=== PATIENT | female | born 1975 | race Hispanic/Latino ===

== ENCOUNTER → 2017-12-25 | Day surgery (SDC) | payer OTHER ==
--- NOTE | 2017-12-25 11:51 | RAD REPORT ---
EXAM DESCRIPTION: Ultrasound-guided vacuum assisted left breast core biopsy CLINICAL HISTORY: Breast mass, palpable, 11 o'clock region left breast. COMPARISON: Recent breast imaging studies. FINDINGS: Informed consent was obtained and time-out was performed. Particular risk of implant ruptu re during the biopsy was explained in detail to the patient. The patient's left breast was prepped and draped in the usual sterile fashion. 1% lidocaine was used for local anesthetic purposes. Utilizing aseptic technique and ultrasound guidance, vacuum assisted core biopsy device was used to o btain 2 core specimen through the mass of interest, approximately 11-12 o'clock posteriorly. A post b iopsy clip was then placed. All collected material was sent for cytology. Patient tolerated procedure well. IMPRESSION: Successful ultrasound guided vacuum assisted left breast mass biopsy.
== END ==
LOC: DS 10:37
PROVIDERS: ATTEND Surgery Plastic and Reconstructive Surgery
PROC: 0HBU3ZX Excision of Left Breast, Percutaneous Approach, Diagnostic (ICD-10-PCS; principal; 2017-12-25)
DX: C50.912 Malignant neoplasm of unspecified site of left female breast (principal); Z17.0 Estrogen receptor positive status [ER+]
CPT/HCPCS: 19083; 88305

== ENCOUNTER 2018-01-10 07:38 | Day surgery (SDC) | payer OTHER ==
--- NOTE | 2018-01-09 14:29 | RAD REPORT ---
EXAM DESCRIPTION: RADOP - Outpt Chest Pa/Lat (2 Views) - 01/09/2018 2:23 pm CLINICAL HISTORY: Preop chest COMPARISON: None. TECHNIQUE: PA and lateral views of the chest were obtained. FINDINGS: The lungs are clear. Heart size is normal and central vasculature is within normal limits . No pleural effusion or pneumothorax seen. No acute bony finding noted. No acute aortic finding. Br east implants are in place. No free air under the diaphragm. Trachea is midline. IMPRESSION: No acute cardiopulmonary process.
[2018-01-09 14:56] LABS: Absolute Lymphocytes (CBC) 1.9 K/uL (0.7-4.9); Absolute Monocytes 0.4 K/uL (0.1-1.3); Absolute Neutrophil 3.8 K/uL (1.8-8.0); Basophils % 0.8 % (0-1.3); Eosinophils % 1.5 % (0-4.4); MCH 30.3 pg (27.0-35.0); MCV 92.3 fL (80-100); MPV 9.7 fL (7.6-11.3); Monocytes % 6.6 % (3.3-12.3); RBC Red Blood Cell Count 4.34 M/uL (3.86-4.86)
[2018-01-09 15:13] LABS: BUN Blood Urea Nitrogen 8 mg/dL (6-20); Bicarbonate 29 mEq/L (21-31); Glucose Level 107 mg/dL (65-120); Potassium 3.8 mEq/L (3.6-5.0); Sodium Level 138 mEq/L (135-145)
--- NOTE | 2018-01-10 07:37 | EKG ---
Test Date: 2018-01-09 Test Time: 14:14:31 Printer Floor Covering Assistant: JARRETT MEASUREMENT RESULTS: Intervals: Rate: 68 [place]: 148 QRSD: 88 QT: 382 QTc: 406 [place]: P: 47 KS: 148 QRS: 43 T: 36 INTERPRETIVE STATEMENTS: Normal sinus rhythm Normal ECG No previous ECG available for comparison Electronically Signed On 01-10-18 07:35:02 CDT by Otf Rivero
[2018-01-10] MEDS ORDERED: Ringers Lactate 1,000 ML IV ONE ×3 (08:08→14:05)
[2018-01-10] MEDS ORDERED: CEFAZOLIN/SWI 1gm 1 GM/10 ML SYR ONE (08:50)
[2018-01-10] MEDS ORDERED: METHYLENE BLUE 0.5% 10 ML AMP ONE (10:19)
[2018-01-10] MEDS ORDERED: MIDAZOLAM HCL 2 MG/2 ML INJ ONE (10:20)
[2018-01-10] MEDS ORDERED: LIDOCAINE 2% MPF 5 ML VIAL ONE (10:20)
[2018-01-10] MEDS ORDERED: PROPOFOL 200 MG/20 ML VIAL IV ONE (10:20)
[2018-01-10] MEDS ORDERED: ONDANSETRON 4 MG/2 ML VIAL ONE ×2 (10:21→11:08)
[2018-01-10] MEDS ORDERED: FENTANYL CITR 250 MCG/5 ML ONE (10:21)
[2018-01-10] MEDS ORDERED: ROCURONIUM 50 MG/5 ML VIAL IV ONE (10:22)
[2018-01-10] MEDS ORDERED: SCOPOLAMINE HYDROBROMIDE PATCH TD ONE (10:44)
[2018-01-10] MEDS ORDERED: GLYCOPYRROLATE 0.2 MG/ML SYR ONE (11:08)
[2018-01-10] MEDS ORDERED: NEOSTIGMINE 1 MG/ML -5 ML SYRINGE ONE (11:09)
[2018-01-10] MEDS ORDERED: MORPHINE 10 MG/ML VIAL ONE (11:22)
[2018-01-10] MEDS ORDERED: TRAMADOL 37.5mg/APAP 325mg PER TAB PO PRN (14:18)
[2018-01-10] MEDS ORDERED: SODIUM CHLORIDE 0.9% 10ML INJ IV PRN (14:18)
--- NOTE | 2018-01-10 14:29 | P.BOP ---
Preoperative diagnosis: left breast invasive ductal carcinoma Postoperative diagnosis: same Primary procedure: LEft modified radical mastectomy, Right mastectomy Secondary procedure: left sentinel lymphnode biopsy Warehouse Attendant: EVAN HERNANDEZ Estimated blood loss: 150cc Specimen: sentinel LN, Findings: sentinel ln positive for cancer Anesthesia: General Complications: None Drain(s): KYLE drain Transferred to: Recovery Room Condition: Good
[2018-01-10] MEDS: MORPHINE 4 MG/ML SYR ONE ×2 (15:10→15:17)
[2018-01-10] MEDS ORDERED: PROMETHAZINE 25 MG/ML VIAL ONE (15:29)
[2018-01-10] MEDS: NA CHLORIDE 0.9% 1,000 ML IV SCH (16:17)
[2018-01-10 17:30] VITALS: BMI 26.5
[2018-01-10] MEDS ORDERED: MORPHINE 2 MG/ML SYR IV PRN (19:04)
[2018-01-10] MEDS ORDERED: MORPHINE 4 MG/ML SYR IV PRN (19:05)
[2018-01-10] MEDS: HYDROCODONE/APAP 7.5/325 MG TAB PO PRN ×2 (19:27→23:12)
[2018-01-10] MEDS: CIPROFLOXACIN 400mg IV 400 MG/200 ML BAG IV SCH (21:36)
[2018-01-11] MEDS: NA CHLORIDE 0.9% 1,000 ML IV SCH ×2 (03:48→11:00)
[2018-01-11] MEDS: HYDROCODONE/APAP 7.5/325 MG TAB PO PRN ×5 (03:49→20:05)
[2018-01-11 06:11] LABS: Absolute Lymphocytes (CBC) 1.7 K/uL (0.7-4.9); Absolute Monocytes 0.8 K/uL (0.1-1.3); Absolute Neutrophil 5.2 K/uL (1.8-8.0); Basophils % 0.5 % (0-1.3); Hematocrit 29.6 % (36.0-45.0); Lymphocytes % 21.4 % (15.3-44.8); MCV 91.7 fL (80-100); MPV 9.6 fL (7.6-11.3); Monocytes % 9.8 % (3.3-12.3); RBC Red Blood Cell Count 3.22 M/uL (3.86-4.86)
[2018-01-11 06:24] LABS: BUN Blood Urea Nitrogen 7 mg/dL (6-20); Bicarbonate 29 mEq/L (21-31); Glucose Level 107 mg/dL (65-120); Potassium 4.6 mEq/L (3.6-5.0); Sodium Level 136 mEq/L (135-145)
[2018-01-11] MEDS: CIPROFLOXACIN 400mg IV 400 MG/200 ML BAG IV SCH ×2 (08:47→20:06)
[2018-01-11] MEDS ORDERED: PANTOPRAZOLE 40 MG INJ IVP SCH (09:00)
[2018-01-11 09:29] VITALS: O2SAT 98
[2018-01-11] MEDS ORDERED: MORPHINE 4 MG/ML SYR IV PRN (10:37)
[2018-01-11 16:54] VITALS: TEMP 98.5
--- NOTE | 2018-01-11 19:58 | P.DS ---
Discharge Date: 01/11/18 Disposition: ROUTINE DISCHARGE Discharge Condition: GOOD Vital Signs/Physical Exam: Temp Pulse Resp BP Pulse Ox 98.5 F 58 20 157/75 H 100 01/11/18 16:00 01/11/18 16:00 01/11/18 16:00 01/11/18 16:00 01/11/18 16:00 General: Alert, In no apparent distress, Oriented x3, Cooperative HEENT: PERRLA, EOMI Neck: Supple Respiratory: Normal air movement Cardiovascular: No edema, Normal pulses Gastrointestinal: Soft and benign, No masses, No rebound Musculoskeletal: No swelling, No contractures, No erythema, No tenderness, No warmth Integumentary: No erythema, No warmth, No cyanosis Laboratory Data at Discharge: WBC 7.9 K/uL (4.3-10.9) D 01/11/18 05:21 Hgb 10.0 g/dL (12.0-15.0) L D 01/11/18 05:21 Hct 29.6 % (36.0-45.0) L D 01/11/18 05:21 Plt Count 169 K/uL (152-406) D 01/11/18 05:21 Sodium 136 mEq/L (135-145) 01/11/18 05:21 Potassium 4.6 mEq/L (3.6-5.0) 01/11/18 05:21 BUN 7 mg/dL (6-20) 01/11/18 05:21 Creatinine 0.57 mg/dL (0.44-1.00) 01/11/18 05:21 Glucose 107 mg/dL (65-120) 01/11/18 05:21 Home Medications: Cranberry Fruit Extract [Cranberry] 500 mg PO DAILY 01/09/18 Fexofenadine HCl [Fannie Allergy] 180 mg PO DAILY 01/09/18 L.acidoph,Paracasei, B.lactis [Probiotic] 1 each PO DAILY 01/09/18 Triamcinolone Acetonide [Nasacort Aq] 16.5 gm NS DAILY 01/09/18 Turmeric Root Extract [Turmeric] 1,000 mg PO DAILY 01/09/18 Ciprofloxacin HCl [Cipro 500 MG Tablet] 500 mg PO BID #12 tab 01/11/18 Hydrocodone/Acetaminophen [Vicodin 5-325 mg Tablet] 1 each PO Q4H #30 tablet 02/23 New Medications: Ciprofloxacin HCl [Cipro 500 MG Tablet] 500 mg PO BID #12 tab Hydrocodone/Acetaminophen [Vicodin 5-325 mg Tablet] 1 each PO Q4H #30 tablet Patient Discharge Instructions: keep area intact. Record KYLE output q24h Diet: AHA Activity: No lifting more than 10 lbs Followup: Devin Alfonso MD [ACTIVE - CAN ADMIT] - 01/15/18
[2018-01-11 21:30] VITALS: BP 158/77
--- NOTE | 2018-01-16 01:01 | OP ---
Date of Procedure: 01/10/2018 Surgeon: Devin Alfonso MD Inside Sales Agent: RUTHY Beltre. Preoperative Diagnosis: Left breast invasive ductal carcinoma with lymphadenopathy. Postoperative Diagnosis: Left breast invasive ductal carcinoma with lymphadenopathy. Procedures: 1.Left modified radical mastectomy, right. 2.Right simple mastectomy. 3.Left sentinel lymph node biopsy. Estimated Blood Loss: About 150 cc. Specimen: [place] lymph node in left breast and right breast and axillary dissection. Findings: [place] lymph node positive for cancer. Anesthesia: General plus local. Indications: This is the case of a female, a 42-year-old patient, comes to us with a left breast inv asive ductal carcinoma. We had extensive discussion about the different options that we might have. After discussing with her breast conservative treatment versus a breast removal, we even suggested h er to consult her plastic surgeons for any other suggestions. The patient comes back with a decision of left mastectomy and sentinel lymph node biopsy with possible axillary dissection, and also, she w ants the right breast to be removed too. So, consent was obtained for those procedures including als o removal of the implant since that will be exposed. The removal of implant will be right and left a nd the patient did agree. The patient understands the benefits, alternatives, and risks which includ e but are not limited to infection, bleeding, damage to adjacent structures, anesthesia complication, recurrence, lymphedema, flap failure, DVTs, VA, even . She also understands this may not relie ve any symptoms. She might need more than one surgical intervention. She understands the importance of followup with her oncologist. There is a good chance that she may require a chemotherapy due to the size of the tumor and the findings. She understands that. She signed a consent. Description Of Procedure: The patient was brought to the operating room and placed in supine positio n. Anesthesia was done without complication. This morning, she went to the Radiology Department whe n she injected technetium colloid and a lymphoscintigram was done. From there, the patient went to [facility] operating room. After that, the patient was taken to the operating room and placed in the supine position. Anesthesia was done without complication. A time-out was called. Bilateral breast and ne ck were prepped and draped in a sterile fashion. Blue dye was injected in the 4 quadrants in the per iareolar region. We started with the left side first with the area with a proven cancer. Each proce dure was done individually avoiding any cross contamination between instruments and glove and gowns. A hand-held gamma probe was used to identify the location of the hottest spot in the left axillary r egion. Prior to incision, the count was about 604. The in vivo count was 2309 and the ex vivo count is 3865, background 0, blue node yes, and no other count was obtained in the axillary region. No ot her counts or hot nodule was identified in the area of the axilla. An incision was made over that re gion and node was excised with the numbers discussed above. Ex vivo measure was done with the probe pointing to the sealing to avoid wrong reading. Once again, no other additional hot spot was identif ied. Still the lymph node that was removed is large. It looked suspicious for cancer, looked friabl e. This patient has previous lymphadenopathy on the ultrasound, so I believe we will continue with a xillary dissection, sending that lymph node to pathologist and coming back as cancer. Since that lym ph node was suspicious for cancer, it is friable in pathology reading of cancer. We proceeded then t o continue with the axillary dissection. The clavipectoral fascia was already opened and incised, so we went along the edges of the pectoralis major. The dissection goes only to the pectoralis major a nd the pectoralis minor. Those muscles were retracted medially. Neurovascular bundle was carefully identified and preserved. We included level 1 level 2 gilbert tissue. Once again, the axillary vein a nd artery were identified and preserved. The thoracodorsal nerve was preserved. The long thoracic n erves also were identified and preserved. The remaining gilbert tissue was removed carefully avoiding damage to the neurovascular bundle. That was sent to the pathologist. That was irrigated. No bleed ing. At that moment, we proceeded to continue with the mastectomy. A skin incision was made to incl ude the nipple-areolar complex. The patient had previous scars from previous implants. The flaps were raised in the avascular plane between the subcutaneous tissue and the breast tissue superiorly up to the clavicle, medially up to s ternum, laterally to the anterior border of the latissimus dorsi, and inferior to the inframammary fo ld. The patient had some implants in that area. When we elevated the lower flap, the implants were exposed. So carefully, we proceeded to remove the implants from the patient. Lower capsule area was also removed. The breast tissue and the pectoralis fascia were excised. The area was irrigated and hemostasis was obtained. At that moment, I proceeded to put 2 KYLE drains, one to go into the axillar y area and another one in the area of the flaps. The patient's attention was obtained on the flaps i n the bottom since the patient has a large scar tissue from the previous breast surgery. The subcuta neous incision was closed with 3-0 chromic and then the skin. I put a 4-0 PDS. The KYLE drains were s ecured in place with 3-0 nylon. The patient tolerated this procedure well. We changed gloves and go wns and we did the mastectomy in the opposite side avoiding any cross-contamination. The right breas t also had previous scar tissue from the previous implant. So, we made an incision once again, that encompassed the nipple areolar complex. The flaps were also raised in the vascular plane between the subcutaneous tissue and the breast tissue of the lower part of the flaps. Once again, we encountere d some scar tissue from the previous scar. The flaps were raised in the avascular plane to the clavi paradise superiorly to the sternum medially to the anterior rectus sheath inferiorly and to the anterior b order of the latissimus dorsi laterally. The breast tissue and the underlying pectoralis fascia were removed with the specimen. The area was irrigated. Hemostasis obtained. We left once again 2 KYLE d rains in that area securing that with 3-0 nylon. The skin was closed with the subcutaneous tissue wi th 3-0 chromic and then the skin with a 4-0 PDS. Sponge count on each side counts correct. Instrume nt count is correct. Sterile dressing was placed over the area. The patient tolerated the procedure well. The patient was sent to Recovery in stable condition. Due to surgery and sedation she will require, most likely this patient will be overnight in observation and pain control. AUSTIN/LATRICE Voice ID: [id number] Report ID: [id number]
== END 2018-01-11 21:57 | disposition home or self-care (01) ==
LOC: OR 07:38 → 2ND 14:21 → OR 15:18 → 2ND 15:18 → OR 01-11 21:57
PROVIDERS: ATTEND Surgery
PROC: 0HTT0ZZ Resection of Right Breast, Open Approach (ICD-10-PCS; 2018-01-10)
PROC: 0HTU0ZZ Resection of Left Breast, Open Approach (ICD-10-PCS; principal; 2018-01-10 12:15)
DX: C50.912 Malignant neoplasm of unspecified site of left female breast (principal); C77.3 Secondary and unspecified malignant neoplasm of axilla and upper limb lymph nodes; Z17.0 Estrogen receptor positive status [ER+]; Z88.6 Allergy status to analgesic agent; Z82.49 Family history of ischemic heart disease and other diseases of the circulatory system; Z83.3 Family history of diabetes mellitus
CPT/HCPCS: 36415; 71046; 80048; 85025; 88300; 88305; 88307; 88309; 88331; 88333; 93005; C9113; J0690; J0744; J2250; J2405; J2550; J2710; J7030

== ENCOUNTER 2018-02-13 08:05 | Day surgery (SDC) | payer OTHER ==
[2018-02-13] MEDS ORDERED: Ringers Lactate 1,000 ML IV ONE (08:26)
[2018-02-13 08:32] LABS: Absolute Lymphocytes (CBC) 1.7 K/uL (0.7-4.9); Absolute Monocytes 0.5 K/uL (0.1-1.3); Absolute Neutrophil 3.5 K/uL (1.8-8.0); Basophils % 0.7 % (0-1.3); Eosinophils % 3.3 % (0-4.4); Hematocrit 37.2 % (36.0-45.0); MCH 30.2 pg (27.0-35.0); MCV 92.5 fL (80-100); MPV 9.1 fL (7.6-11.3); Monocytes % 8.2 % (3.3-12.3); RBC Red Blood Cell Count 4.03 M/uL (3.86-4.86)
[2018-02-13 08:36] LABS: Bicarbonate 31 mEq/L (21-31); Glucose Level 95 mg/dL (65-120); Potassium 3.6 mEq/L (3.6-5.0); Sodium Level 140 mEq/L (135-145)
[2018-02-13 08:37] LABS: BUN Blood Urea Nitrogen 13 mg/dL (6-20)
--- NOTE | 2018-02-13 09:24 | RAD REPORT ---
EXAM DESCRIPTION: RAD - Chest Pa And Lat (2 Views) - 02/13/2018 8:30 am CLINICAL HISTORY: Chest pain. COMPARISON: None. FINDINGS: The lungs are clear. The heart is normal in size. No displaced fractures. Left axillary no pam dissection clips. IMPRESSION: No acute or concerning finding suspected.
[2018-02-13] MEDS: CEFAZOLIN/SWI 1gm 1 GM/10 ML SYR ONE ×2 (11:46→12:16)
[2018-02-13] MEDS ORDERED: PROPOFOL 200 MG/20 ML VIAL IV ONE (11:54)
[2018-02-13] MEDS ORDERED: FENTANYL CITR 100 MCG/2 ML ONE (11:54)
[2018-02-13] MEDS ORDERED: MIDAZOLAM HCL 2 MG/2 ML INJ ONE (11:54)
[2018-02-13] MEDS ORDERED: LIDOCAINE 2% MPF 5 ML VIAL ONE (11:54)
--- NOTE | 2018-02-13 11:55 | EKG ---
Test Date: 2018-02-13 Test Time: 08:14:27 Cementer Machine: KVNG MEASUREMENT RESULTS: Intervals: Rate: 61 [place]: 150 QRSD: 88 QT: 396 QTc: 398 [place]: P: 59 VA: 150 QRS: 65 T: 60 INTERPRETIVE STATEMENTS: Normal sinus rhythm Normal ECG Compared to ECG 01/09/2018 14:14:31 No significant changes Electronically Signed On 02-13-18 11:54:03 CDT by Otf Rivero
[2018-02-13] MEDS ORDERED: ONDANSETRON 4 MG/2 ML VIAL ONE (12:00)
[2018-02-13] MEDS ORDERED: NS 0.9% VIAL 20 ML ONE (12:01)
[2018-02-13] MEDS ORDERED: LIDOCAINE 1% 20 ML MDV ONE (12:02)
[2018-02-13] MEDS: HEPARIN 5000 UNIT/ML 1 ML VIAL ONE ×2 (12:17→12:43)
--- NOTE | 2018-02-13 12:57 | P.BOP ---
Preoperative diagnosis: breast cancer Postoperative diagnosis: same Primary procedure: 1. Placement of portacath left subclavian vein Secondary procedure: 2. Interpretation of fluoroscopy Other procedure(s): 3. ultrasound neck for cath placement Estimated blood loss: <5cc Specimen: none Findings: ultrasound neck and subclavian vein for cath placement with compressible j Anesthesia: General Complications: None Implants: single lumen portacath Transferred to: Recovery Room Condition: Good
[2018-02-13] MEDS: FENTANYL CITR 100 MCG/2 ML ONE ×2 (13:25→13:30)
--- NOTE | 2018-02-13 13:46 | RAD REPORT ---
[facility] 1[facility]32 [facility] CLINICAL HISTORY: Device placement catheter placement COMPARISON: February 13, 2018 FINDINGS: A central venous catheter is been placed into the proximal superior vena cava without pne umothorax. The lungs appear clear. The heart is normal size
--- NOTE | 2018-02-13 13:49 | RAD REPORT ---
EXAM DESCRIPTION: RAD - Fluoroscopy <1 Hour - 02/13/2018 12:55 pm CLINICAL HISTORY: Device placement central venous catheter placement FINDINGS: A central venous catheter was placed into the superior vena cava. Multiple fluoroscopic sp ot images are submitted. The examination was performed by Dr. Alfonso
[2018-02-13] MEDS ORDERED: TRAMADOL 37.5mg/APAP 325mg PER TAB ONE (14:29)
[2018-02-13 17:23] VITALS: BP 155/67; TEMP 98.9; O2SAT 98
--- NOTE | 2018-02-14 00:45 | OP ---
Date of Procedure: 02/13/2018 Surgeon: Devin Alfonso MD Diagnosis: Breast cancer. Postoperative Diagnosis: Breast cancer. Procedures: 1.Placement of Port-A-Cath in the left subclavian vein. 2.Interpretation of fluoroscopy. 3.Ultrasound of the neck for catheter placement. Estimated Blood Loss: Less than 5 cc. Specimen: None. Findings: Ultrasound of the neck and subclavian vein shows a patent blood vessel. Anesthesia: General plus local. Implant: A single-lumen Port-A-Cath. Indications: This is the case of a female, who came to us with history of breast cancer, due for indira motherapy, and Port-A-Cath placement fully explained to the patient, which include but are not limite d to infection, bleeding, damage to adjacent structures, anesthesia complications, pneumothorax, hemo thorax, pericardiac tamponade, breaking of the catheter, DVTs, PE, DE, even . She also understa nds this may not relieve any symptoms. She might need more than one surgical intervention. She was advised to us as soon as she is not using this Port-A-Cath for chemotherapy to return to our office f or removal of this Port-A-Cath. The benefits, alternatives, and risks were fully explained once agai n. Procedure In Detail: The patient was brought to the operating room and placed in supine position. A nesthesia was done without complication. A time-out was called. The left neck and subclavian region s were prepped and draped in a sterile fashion. Ultrasound of those areas was done to confirm the lo cation and patency of those blood vessels. We decided to go to the left subclavian vein, so we put t he patient in Trendelenburg position. We placed an 18-gauge needle below the left clavicle and we ge t the vein at the first attempt. The ultrasound helped us for location. The guidewire was placed th rough and needle was removed. After that, we created a small pocket in the left upper side to lodge the Port-A-Cath. We placed an introducer kit over the guidewire and guided into the superior vena ca va using fluoroscopy. I removed the guidewire and placed the catheter through the introducer and pee led off the introducer. Then, channeled Charnley catheter underneath the skin to meet that new incis ion in the left upper chest, cut to it proper size, connected to the Port-A-Cath interim using [facility] judithurer's specifications. Excellent backflow and inflow. No leak. The Port-A-Cath was secured to th e subcutaneous tissue with suture and then the Port-A-Cath was packed with heparinized saline. [place] lent backflow and inflow. Then, I proceeded to close the skin in a subcuticular fashion with Steri-S trips on top. The patient tolerated the procedure well. The patient was brought from Trendelenburg position to normal position and a chest x-ray was ordered stat in the recovery room. Sponge count an d instrument counts were correct. AUSTIN/LATRICE Voice ID: [id number] Report ID: [id number]
--- NOTE | 2018-02-14 00:45 | DS ---
Date of Discharge: 02/13/2018 Diagnosis: Breast cancer. Procedures: Placement of a Port-A-Cath, fluoroscopy, and ultrasound of the neck. Disposition: Home after reviewing the chest x-ray. Followup: Follow up in my office in 1 week. Call for appointment [phone]. Keep the area dry for 4 8 hours, then may shower. Keep Steri-Strips intact. Medications: See orders. AUSTIN/LATRICE Voice ID: [id number] Report ID: [id number]
== END 2018-02-13 15:10 | disposition home or self-care (01) ==
LOC: OR 08:05
PROVIDERS: ATTEND Surgery
PROC: 0JH60WZ Insertion of Totally Implantable Vascular Access Device into Chest Subcutaneous Tissue and Fascia, Open Approach (ICD-10-PCS; principal; 2018-02-13 10:30)
DX: C50.919 Malignant neoplasm of unspecified site of unspecified female breast (principal); Z88.6 Allergy status to analgesic agent
CPT/HCPCS: 36415; 71045; 71046; 76000; 80048; 85025; 93005; C1788; J0690; J1644; J2250; J2405; J3010

== ENCOUNTER 2018-08-29 07:27 | Day surgery (SDC) | payer OTHER ==
--- NOTE | 2018-08-28 15:30 | RAD REPORT ---
EXAM DESCRIPTION: Ramon Gaines And Vilma (2 Views)08/28/2018 3:25 pm CLINICAL HISTORY: Hypertension COMPARISON: February 2018 FINDINGS: The lungs appear clear of acute infiltrate. The heart is normal size. Central venous catheter has its tip in the proximal superior vena cava IMPRESSION: No acute abnormalities displayed
[2018-08-28 15:46] LABS: Absolute Lymphocytes (CBC) 0.7 K/uL (0.7-4.9); Absolute Monocytes 0.4 K/uL (0.1-1.3); Hematocrit 36.9 % (36.0-45.0); MCH 30.3 pg (27.0-35.0); MCV 88.4 fL (80-100); MPV 8.6 fL (7.6-11.3); Monocytes % 11.8 % (3.3-12.3); RBC Red Blood Cell Count 4.18 M/uL (3.86-4.86)
[2018-08-28 15:52] LABS: BUN Blood Urea Nitrogen 12 mg/dL (7-18); Bicarbonate 31 mmol/L (21-32); Glucose Level 102 mg/dL (74-106); Potassium 3.8 mmol/L (3.5-5.1); Sodium Level 141 mmol/L (136-145)
--- NOTE | 2018-08-28 15:59 | EKG ---
Test Date: 2018-08-28 Test Time: 15:19:27 Electronics Assembler: CAROL ANN MEASUREMENT RESULTS: Intervals: Rate: 65 ND: 134 QRSD: 86 QT: 404 QTc: 420 [place]: P: 29 ND: 134 QRS: 34 T: 25 INTERPRETIVE STATEMENTS: Normal sinus rhythm Nonspecific T wave abnormality Abnormal ECG Compared to ECG 02/13/2018 08:14:27 T-wave abnormality now present Electronically Signed On 08-28-18 15:58:56 UI ARCHITECT by Otf Rivero
[2018-08-29] MEDS ORDERED: Ringers Lactate 1,000 ML IV ONE (08:00)
[2018-08-29] MEDS ORDERED: CEFAZOLIN/SWI 1gm 1 GM/10 ML SYR ONE (08:01)
[2018-08-29] MEDS ORDERED: PROPOFOL 200 MG/20 ML VIAL IV ONE (08:32)
[2018-08-29] MEDS ORDERED: MIDAZOLAM HCL 2 MG/2 ML INJ ONE (08:33)
[2018-08-29] MEDS ORDERED: LIDOCAINE 2% MPF 5 ML VIAL ONE (08:33)
--- NOTE | 2018-08-29 08:37 | P.BOP ---
Preoperative diagnosis: breast cancer Postoperative diagnosis: same Primary procedure: Removal of portacath Estimated blood loss: <5cc Specimen: intact portacath Findings: as above Anesthesia: MAC Complications: None Transferred to: Recovery Room Condition: Good
[2018-08-29 11:55] VITALS: BP 109/72; TEMP 98; O2SAT 99
--- NOTE | 2018-08-29 20:04 | OP ---
Date of Procedure: 08/29/2018 Surgeon: Devin Alfonso MD Preoperative Diagnosis: Breast cancer. Postoperative Diagnosis: Breast cancer. Procedure: Removal of Port-A-Cath. Specimen: Intact Port-A-Cath. Anesthesia: MAC plus local. Indication: This is a case of a 42-year-old patient with above diagnosis. Fully explained the benef its, alternatives, and risks of removal of Port-A-Cath which include, but not limited to infection, b leeding, damage to adjacent structures, anesthesia complication, DVTs, pulmonary emboli, PA, even daniel th. She also understands this may not relieve any symptoms. She might need more than one surgical i ntervention. She understood, signed a consent. Description Of Procedure: The patient was brought to the operating room, placed in supine position. Anesthesia was done without complication. A time-out was call. The chest area was prepped and drap ed in a sterile fashion. Incision was made after injection local anesthetic over the area. Incision was carried down to subcutaneous tissue. Port-A-Cath was found, removed from the subcutaneous tissu e, and pulled carefully without resistance. Pressure applied at insertion point. The Port-A-Cath ca me out intact. The area was irrigated. After checking for hemostasis with no bleeding, we proceeded then to close the area with a 3-0 chromic in a subcuticular fashion with Steri-Strips on top. Spong e count and instrument counts were correct. The patient tolerated the procedure well. The patient was sent to Recovery in stable condition. AUSTIN/LATRICE Voice ID: [id number] Report ID: [id number]
--- NOTE | 2018-08-29 20:25 | DS ---
Date of Discharge: 08/29/2018 Diagnosis: Breast cancer. Procedure: Removal of Port-A-Cath. Disposition: Home. Discharge Instructions: Activity as tolerated. No heavy lifting. Follow up in my office in 1 week. Call for appointment [phone]. Keep area dry for 48 hours, then may shower. Keep Steri-Strips inta ct. Medication: Ultracet q.4 hours p.r.n. pain. AUSTIN/LATRICE Voice ID: [id number] Report ID: [id number]
== END 2018-08-29 10:53 | disposition home or self-care (01) ==
LOC: OR 07:27
PROVIDERS: ATTEND Surgery
PROC: 0JPT0WZ Removal of Totally Implantable Vascular Access Device from Trunk Subcutaneous Tissue and Fascia, Open Approach (ICD-10-PCS; principal; 2018-08-29 09:00)
DX: Z45.2 Encounter for adjustment and management of vascular access device (principal); C50.919 Malignant neoplasm of unspecified site of unspecified female breast; I10 Essential (primary) hypertension; Z90.13 Acquired absence of bilateral breasts and nipples; Z88.8 Allergy status to other drugs, medicaments and biological substances; Z83.3 Family history of diabetes mellitus; Z82.49 Family history of ischemic heart disease and other diseases of the circulatory system
CPT/HCPCS: 36415; 71046; 80048; 85025; 88300; 93005; J0690; J2250; J2704

== ENCOUNTER 2018-10-05 06:25 | Day surgery (SDC) | payer OTHER ==
[2018-10-04 16:08] LABS: Absolute Monocytes 0.4 K/uL (0.1-1.3); Absolute Neutrophil 3.2 K/uL (1.8-8.0); Basophils % 0.1 % (0-1.3); Hematocrit 39.8 % (36.0-45.0); Lymphocytes % 22.1 % (15.3-44.8); MPV 8.7 fL (7.6-11.3); Monocytes % 9.2 % (3.3-12.3)
[2018-10-05] MEDS ORDERED: Ringers Lactate 1,000 ML IV ONE ×2 (06:45→08:12)
[2018-10-05] MEDS ORDERED: SILVER NITRATE 1 APPL TOP ONE (07:01)
[2018-10-05] MEDS ORDERED: LIDOCAINE 1% MPF 5 ML VIAL ONE (07:12)
[2018-10-05] MEDS ORDERED: MIDAZOLAM HCL 2 MG/2 ML INJ ONE (07:12)
[2018-10-05] MEDS ORDERED: PROPOFOL 200 MG/20 ML VIAL IV ONE (07:12)
[2018-10-05] MEDS ORDERED: FENTANYL CITR 100 MCG/2 ML ONE ×3 (07:12→09:07)
[2018-10-05] MEDS ORDERED: ROCURONIUM 50 MG/5 ML VIAL IV ONE (07:12)
[2018-10-05] MEDS ORDERED: DEXAMETHASONE 10 MG/ML VIAL ONE (07:43)
[2018-10-05] MEDS ORDERED: KETOROLAC 30 MG/ML INJ ONE (09:00)
[2018-10-05] MEDS ORDERED: GLYCOPYRROLATE 0.2 MG/ML SYR ONE (09:00)
[2018-10-05] MEDS ORDERED: ONDANSETRON 4 MG/2 ML VIAL ONE (09:02)
[2018-10-05] MEDS ORDERED: NEOSTIGMINE 1 MG/ML -5 ML SYRINGE ONE (09:02)
--- NOTE | 2018-10-05 09:17 | P.BOP ---
Preoperative diagnosis: ER post breast CA Postoperative diagnosis: same Primary procedure: Laparoscopy, lysis of adhesions, bilateral salpingoophorectomy Car Designer: Singh Mitchell Estimated blood loss: Less than 10ml Specimen: tubes and ovaries Anesthesia: General Complications: None Transferred to: Recovery Room Condition: Good
[2018-10-05] MEDS: MEPERIDINE HCL 25 MG/0.5 ML ONE ×2 (09:52→09:54)
[2018-10-05] MEDS ORDERED: HYDROCODONE/APAP 10/325 TAB ONE (10:55)
[2018-10-05 11:48] VITALS: BP 99/59; TEMP 98.8; O2SAT 99
--- NOTE | 2018-10-05 19:58 | OP ---
Surgeon: Lucho Rosales MD Preoperative Diagnosis: Estrogen receptor-positive breast cancer in a premenopausal patient. Procedures: Laparoscopy, extensive lysis of pelvic adhesions. Bilateral salpingo-oophorectomy. Postoperative Diagnosis: Estrogen receptor-positive breast cancer in a premenopausal patient. Description Of Procedure: After satisfactory level of general anesthesia was obtained, the patient w as prepped and draped in the usual fashion for abdominal surgery in low leg holders. A sponge stick was placed in the vagina. Supraumbilical incision made after infiltrating the skin with 0.5% Marcain e carried down to the fascia. Fascia incised, grasped with Piotr clamps. Peritoneum identified and entered bluntly. Stay sutures of 0 Vicryl were placed in the fascia. Trocar introduced. Peritonea l cavity was insufflated with carbon dioxide, not allowing the intraperitoneal pressure to exceed 15 mmHg. Under direct visualization a 5 mm port in the right lower quadrant was placed. Visualization of the peritoneal cavity revealed extensive adhesions of the omentum to the anterior abdominal wall c onsistent with her prior abdominoplasty. These were partially taken down. Visualization of the ovar ies was still difficult at this time. Dr. Singh Mitchell was consulted to assist with lysis of adhesions and removal of the ovaries. Upon placement of another 5 mm port in the left lower quadrant, visuali zation was improved by taking down the omentum utilizing LigaSure device. Right ovary and tube was g rasped and utilizing LigaSure, the ovary and tube were removed. Good hemostasis was noted. The left tube and ovary were likewise removed, placed in a basket and retrieval sac, and these were removed t hrough the umbilical port. Trocar was replaced under direct visualization. The 5 mm ports were la colby after visualization of the omentum. There was no evidence of active bleeding. The ports were re moved. Carbon dioxide allowed to escape. The umbilical incision was closed with the stay sutures of 0 Vicryl in the fascia and 2 simple subcutaneous sutures of 2-0 Vicryl, and subcuticular suture of 4 -0 Monocryl. The 5 mm ports were closed with 1 simple subcutaneous suture of 2-0 Vicryl, and subcuti cular sutures of 4-0 Monocryl. Tegaderm dressings were applied. The patient was awakened, taken to recovery room in satisfactory condition. Estimated total blood loss was less than 10 mL. Internal Control Analyst Surgeon: Dr. Singh Mitchell. Anesthesia: Farida Andino and Dr. Lionel Aldrich. YVONNE/REYL Voice ID: [id number] Report ID: [id number]
--- NOTE | 2018-10-05 20:10 | DS ---
Date of Discharge: 10/05/2018 Final Hospital Discharge Diagnosis: Estrogen receptor-positive breast cancer in a premenopausal brady n. Procedures: Laparoscopy. Lysis of extensive peritoneal adhesions. Bilateral salpingo-oophorectomy. Hospital Course: The patient is a 42-year-old female, admitted for laparoscopic bilateral s alpingo-oophorectomy. During the procedure, extensive peritoneal adhesions were noted from the oment um to the anterior abdominal wall. These were lysed and taken down. Bilateral salpingo-oophorectomy was accomplished without further difficulties. The patient was dismissed with prescription for Tyle nol No. 3 #10 for pain relief. To be seen back in my office in 2 weeks with usual post laparoscopy ac tivity restrictions. Lab work included admission hemoglobin and hematocrit of 13.4 and 39.8. YVONNE/LATRICE Voice ID: [id number] Report ID: [id number]
--- NOTE | 2018-10-07 11:37 | PREOPHP ---
Date of Admission: 10/05/2018 History Of Present Illness: Ms. Berrios is a 42-year-old female, 4, para 2-2- 0-4, who is status post vaginal hysterectomy, who has recently been diagnosed with ER positive breast cancer and status post bilateral salpingo-oophorectomy. She currently is on tamoxifen. She has bee n counseled by her oncologist that oophorectomy will decrease her risk of recurrence of her breast ca ncer or she may undergo a medical menopause by treatment with medications. She has chosen to proceed with laparoscopic salpingo-oophorectomy. She is BRCA gene negative, but again does have the ER posi tive breast cancer. Past Medical History: Includes bilateral mastectomies. She is scheduled for breast reconstructive s urgery later this summer. She is status post tonsillectomy, 2 prior sections, abdominoplast y, breast augmentation surgery previously and vaginal hysterectomy. Current Medications: Include tamoxifen and amlodipine for her blood pressure. Allergies: SHE LISTS ALLERGY TO DILAUDID, CAUSING A RASH. Family History: Significant for elevated blood pressure, otherwise noncontributory. Review of Systems: She reports no recent cough, cold, fever, or chills. No recent nausea or vomiting. She denies any a bdominal pain or discomfort. She denies any bowel or bladder issues. Physical Examination: General: Reveals pleasant female, in no apparent distress. Neck: Supple without adenopathy or thyromegaly. Lungs: Clear. Cardiac: Regular rate and rhythm without murmurs. Breasts: Not examined today. Abdomen: Nontender. Pelvic: No abnormalities. Cervix surgically absent. Bimanual, no abnormalities. Extremities: No cyanosis, clubbing, or edema. Plan: The patient has been counseled regarding risks and benefits of proposed laparoscopic salpingo- oophorectomy and she wishes to undergo this. She has signed operative permit in my presence. YVONNE/LATRICE Voice ID: [id number]
== END 2018-10-05 11:37 | disposition home or self-care (01) ==
LOC: OR 06:25
PROVIDERS: ATTEND Specialist
PROC: 0UT74ZZ Resection of Bilateral Fallopian Tubes, Percutaneous Endoscopic Approach (ICD-10-PCS; 2018-10-05)
PROC: 0DNW4ZZ Release Peritoneum, Percutaneous Endoscopic Approach (ICD-10-PCS; 2018-10-05)
PROC: 0UT24ZZ Resection of Bilateral Ovaries, Percutaneous Endoscopic Approach (ICD-10-PCS; principal; 2018-10-05 07:30)
DX: N83.8 Other noninflammatory disorders of ovary, fallopian tube and broad ligament (principal); N73.6 Female pelvic peritoneal adhesions (postinfective); C50.919 Malignant neoplasm of unspecified site of unspecified female breast; Z17.0 Estrogen receptor positive status [ER+]; I10 Essential (primary) hypertension; Z79.899 Other long term (current) drug therapy; Z90.710 Acquired absence of both cervix and uterus
CPT/HCPCS: 36415; 85025; 88305; 88307; J1100; J2175; J2250; J2405; J2704; J2710; J3010